=== PATIENT | male | born 1980 | race Caucasian/White ===

== ENCOUNTER → 2016-03-20 | Outpatient (CLI) | payer BC ==
[~2016-03-20] MED LIST: GABA-113 PO; MULT-220 PO
--- NOTE | 2016-03-23 14:13 | PULMONARY FUNCTION TEST ---
CLINICAL DATA: A 35-year-old male with paresthesias in his upper and lower extremities and face and loud snoring was referred by Dr. Springer and Dr. Moralez and myself for a sleep study. On the evening of 03/20/2016, a home sleep apnea test was performed using a [employer] type 3 monitor. RECORDING RESULTS: Total recording time was 10 hours. The patient's estimated sleep time and the patient monitoring time was 7.9. RESPIRATORY DATA: Mild sleep apnea was documented. The HARSHAL was 10.6. There were 29 obstructive, 6 mixed and 10 central apneic episodes. There were 39 hypopneic episodes. The longest respiratory event was 35 seconds. OXIMETRY DATA: Nocturnal hypoxemia was seen. Oxygen susan was 80%. Mean saturation was 92%. Time below 89% was 25 minutes. HEART RATE DATA: Heart rates ranged from 47-58 beats per minute. SNORING DATA: Snoring was recorded throughout the night. IMPRESSION: Mild obstructive sleep apnea with nocturnal hypoxemia. RECOMMENDATIONS: The patient would benefit from a repeat sleep study with CPAP, use of an oral appliance, or weight loss. Clinical correlation is needed. LYSSA
--- NOTE | 2016-03-24 11:24 | POLYSOMNOGRAPH REPORT ---
DATE: 03/20/16 CLINICAL DATA: A 35-year-old male with paresthesias in his upper and lower extremities/face and loud snoring was referred by Dr. Springer and Dr. Moralez and myself for a sleep study. On the evening of 03/20/2016, a home sleep apnea test was performed using a [employer] type 3 monitor. RECORDING RESULTS: Total recording time was 10 hours. The patient's estimated sleep time and the patient monitoring time was 7.9. RESPIRATORY DATA: Mild sleep apnea was documented. The HARSHAL was 10.6. There were 29 obstructive, 6 mixed and 10 central apneic episodes. There were 39 hypopneic episodes. The longest respiratory event was 35 seconds. OXIMETRY DATA: Nocturnal hypoxemia was seen. Oxygen susan was 80%. Mean saturation was 92%. Time below 89% was 25 minutes. HEART RATE DATA: Heart rates ranged from 47-58 beats per minute. SNORING DATA: Snoring was recorded throughout the night. IMPRESSION: Mild obstructive sleep apnea with nocturnal hypoxemia. RECOMMENDATIONS: The patient may benefit from a repeat sleep study with CPAP, use of an oral appliance, or weight loss. Clinical correlation is needed.
== END | disposition home or self-care (01) ==
LOC: C.NEUR 08:02
PROVIDERS: ATTEND Internal Medicine Pulmonary Disease
DX: J30.9 Allergic rhinitis, unspecified (principal); J34.2 Deviated nasal septum; R20.0 Anesthesia of skin; R20.2 Paresthesia of skin; R06.83 Snoring

== ENCOUNTER → 2016-04-04 | Outpatient (CLI) | payer BC ==
[~2016-04-04] VITALS: Ht 185.4 cm; Wt 126.1 kg
[2016-04-04 13:22] VITALS: BP 125/84; PULSE 75; Ht 185.4 cm; Wt 126.1 kg
== END | disposition home or self-care (01) ==
LOC: C.NEUR 12:07
PROVIDERS: ATTEND Internal Medicine Pulmonary Disease
DX: G47.33 Obstructive sleep apnea (adult) (pediatric) (principal); R06.83 Snoring; R20.2 Paresthesia of skin; J30.9 Allergic rhinitis, unspecified

== ENCOUNTER → 2016-05-16 | Outpatient (CLI) | payer BC ==
--- NOTE | 2016-05-17 04:42 | PAP/PSG TECHNICIAN REPORT ---
[facility] Algebra Tutor Polysomnogram Report Study name: None Report date: 05/17/2016 Study date: 05/16/2016 Referring Physician: Joseph Lopez M.D. Name: CALEB CHIN Interpreting Physician: Joseph Lopez M.D. Date of : 1980 Algebra Tutor: HENRY Chaudhary. Sex: Male Age: 35 StudyType: PSG PAP Weight: 278 lbs Height: 35 years, Height 6' 1" Neck Circum: 16.5inches BMI: 36.67 Medications: Claritin 10mg, Vitamin Patient History Study started on room air with 4cwp in room #8. He had a positive HST that had an HARSHAL of 10.6. He is here tonight for a new titration study. Neck circ=16.5inches. Parameters Monitored NPSG: E1-M2, E2-M1, Fp1-M2, Fp2-M1, F3-M2, F4-M2, F4-M1, C3-M2, C4-M2, C4-M1, O1-M2, O2-M2, O2-M1, T3-M2, T4-M1, P3-M2, P4-M1, CHIN1, CHIN2, HR, EKG, Legs, PFLOW, SNOR, FLOW, CFLOW, Tidal Volume, THOR, ABDO, SpO2, PLTH, CPRESS, ETCO2 Wave, ETCO2, pH Sleep Architecture Sleep Stages Time at Lights Off 9:55:38 PM STAGES Time (min.) TST (%) Time at Lights On 4:16:38 AM Wake 224.5 -- Total Recording Time (TRT) 381.00 min. N1 11.0 7 Total Sleep Period (TSP) 245.5 min. N2 62.0 40 Total Sleep Time (TST) 156.0min. N3 68.5 44 Awake Time 225.0 min. REM 14.5 9 Wake after Sleep Onset 207.0 min. Sleep Efficiency (SE) 41 % Sleep Onset Latency (JEAN) 18.0 min. Number of Stage 1 Shifts None Awakenings 16 Stage Changes 51 Number of REM periods 1 REM 14.5 9 REM Latency 108.0 min. NREM 141.5 91 Body Position Analysis Supine Right Left Side Prone Vertical Total Sleep Time (min.) 232.5 12.0 69.8 81.76 0.0 0.1 Total Sleep Time (%) 48% 8% 45% 52 0% N/A% Total Sleep Time REM (min.) 14.5 0.0 0.0 None 0.0 0.0 Total Sleep Time NREM (min.) 59.7 12.0 69.8 None 0.0 0.0 Intermittent Wake (min.) 158.3 31.4 34.8 None 0.0 0.1 Total Sleep Period (%) 53% None None None None None Arousals Myoclonus (PLM) * Events Count Index Events Count Index Spontaneous 2 1 Events Awake (PLMW) 225 60.1 Respiratory 5 2.7 Events Asleep w/ Arousal (PLMA) 8 3.1 PLM 6 3 Events Asleep w/o Arousal (PLMS) 51 19.6 Snoring 2 1 Total Asleep 59 22.7 Total 14 5 Total 284 45 Respiratory Analysis * CA OA MA CH H RERA Total Count 1 1 0 0 9 1 11 Index 0.4 0.4 0.0 0 3.5 0 4.6 Mean Duration 14.4 18.8 0.0 0.00 27.2 12.7 24.3 Longest Duration 14.4 18.8 0.0 0.00 0.0 12.7 44.0 Respiratory Event Summary Total Supine ~Supine Right Left Prone REM NREM Apneas Count 2 0 2 0 2 N/A 0 2 Index 0.8 0 1 0.0 1.7 N/A 0 1 Hypopneas (4% Desat) Count 9 7 2 0 2 N/A 0 9 Index 3.5 5.7 1 0.0 1.7 N/A 0.0 3.8 Apneas & All Hypopneas Count 11 7 4 0 4 N/A 0 11 Index 4.2 6 3 0 3 N/A 0.0 4.7 Respiratory Events (Building Inspection Engineer+All Hyp+RERA) Count 11 8 4 0 4 N/A 0 11 Index 4.6 6 3 0.0 3.4 N/A 0.0 5.1 Respiratory Related Arousal Count 5 8 2 0 2 N/A 0 7 Index 2.7 4 1 0 2 N/A 0 3 Snoring Analysis Supine Right Left Prone REM NREM Total Snore duration 2.1 min Snores count 102 1 5 N/A 50 58 108 Snore mean duration 1.2 Sec Snores index 82 5 4 N/A 206.9 24.6 41.5 TST with snoring (%) 1.4% Desaturation Event Summary: Minimum %SpO2 Event Count Mean/Min/Max Duration(sec.) Desaturation Index % Time In Bed > 90 26 34.7 / 5.8 / 60.0 13.4 37.6 86 - 90 12 21.1 / 5.8 / 52.8 3.7 62.1 81 - 85 1 4.3 / 4.3 / 4.3 77.4 0.2 76 - 80 0 N/A 0.0 0.0 71 - 75 0 N/A 0.0 0.0 66 - 70 0 N/A 0.0 0.0 61 - 65 0 N/A 0.0 0.0 56 - 60 0 N/A 0.0 0.0 51 - 55 0 N/A 0.0 0.0 < 50 0 N/A 0.0 0.0 Total REM NREM Awake <50% 0.0 min. 0.0 min. 0.0 min. 0.0 min. 51 - 60% 0.0 min. 0.0 min. 0.0 min. 0.0 min. 61 - 70% 0.0 min. 0.0 min. 0.0 min. 0.0 min. 71 - 80% 0.0 min. 0.0 min. 0.0 min. 0.0 min. 81 - 90% 193.5 min. 9.3 min. 84.8 min. 99.4 min. 91 - 100% 116.7 min. 5.2 min. 54.6 min. 56.9 min. Average 90 90 90 90 Minimum SpO2 82 88 87 82 Desaturation Event Index 5.0 0.0 4.2 5.9 # Desat. Events below 89% 22 N/A 8 14 Time(%) with Saturation below 89% 15.4 0.1 7.6 7.7 Time(min.) with Saturation below 89% 47.9 0.2 23.7 24.0 Time (mins) REM (mins) NREM (mins) % of TST SpO2 Below 90% 10 N/A N10 36.7 SpO2 Below 88% 4 0 0 2 Heart Rate Analysis Min (bpm) Max (bpm) Average (bpm) Awake 47 255 73 NREM 55 99 62 REM 52 76 65 Overall 52 99 62 Supplemental O2 Values Minimum O2 level: None Value Start Time End Time Algebra Tutor Comments Mr. Chin slept in the right, left and supine positions. No cardiac arrhythmia noted. PLM's were noted. No bruxism noted. CPAP was initiated at +4 CMH2O and up-titrated to an optimal level of +6 CMH2O, which nearly eliminated all respiratory events and snoring. A medium Quattro Air full face mask by [employer] was used during titration. He awoke to use the restroom 1 time during the night. He woke up towards classification counselor and needed to take the mask off for a break and never did end up putting it back on. He did however say that he would like to try cpap therapy at home. He could not get comfortable here with all the wires on. He had numbness in his extremities and needed to get up and stretch. He stated that he slept worse than when at home. The final report will be interpreted and signed by a sleep physician. The completed physician report will then be placed in the patient medical record. Therapy Event: Therapy (cm H20) 4 5 6 Total Time at Pressure (min.) 29.1 120.0 231.4 TST at Pressure (min.) 4.5 117.1 34.4 # Periods 1 1 1 Sleep Onset (min.) 18.0 1.4 0.0 REM Onset (min.) N/A 96.9 N/A Sleep Efficiency % 15 97 14 Wakefulness (%) 84.5 2.4 85.1 Wakefulness (min.) 24.6 2.9 197.0 NREM 1 (%) 13.8 1.8 2.1 NREM 1 (min.) 4.0 2.1 4.9 NREM 2 (%) 1.7 26.7 12.7 NREM 2 (min.) 0.5 32.0 29.5 NREM 3 (%) 0.0 57.1 0.0 NREM 3 (min.) 0.0 68.5 0.0 REM (%) 0.0 12.1 0.0 REM (min.) 0.0 14.5 0.0 # Arousals 3 6 5 Arousal Index 40.0 3.1 8.7 # Snore 2 105 1 Snore Index 26.7 53.8 1.7 AHI 40.0 4.1 0.0 AHI Supine 60.0 3.4 0.0 AHI Non-Supine 0.0 5.1 0.0 NREM AHI 40.0 4.7 0.0 REM AHI N/A 0.0 N/A RDI 53.3 4.1 0.0 # Obstructive 0 1 0 # Central Ap 0 1 0 # Mixed 0 0 0 # Hypopneas 3 6 0 RERAS 1 0 0 Total Respiratory Events 4 8 0 Time Below SpO2 89.00% (min.) 0.2 12.8 10.8 Mean NREM SpO2 (%) 91 90 89 Mean REM SpO2 (%) N/A 90 N/A Mean Sleep SpO2 (%) 91 90 89 Min NREM SpO2 (%) 87 87 87 Min REM SpO2 (%) N/A 88 N/A Position Supine (min.) 3.0 70.3 0.9 Position Non-supine (min.) 1.5 46.8 33.5 LM Index Sleep 40.0 9.2 66.3 LM Index NREM 40.0 10.5 66.3 LM Index REM N/A 0.0 N/A Mean Heart Rate (bpm) 68 63 59 Min Heart Rate (bpm) 63 52 55
--- NOTE | 2016-05-18 17:48 | POLYSOMNOGRAPH REPORT ---
CLINICAL DATA: A 35-year-old male with BMI of 36.7 referred by myself, Francie Anderson and Dr. Chin Peters for treatment of sleep apnea. He had a home sleep study done which showed an HARSHAL of 10.6 indicating mild sleep apnea. SLEEP ARCHITECTURE: Total sleep period was 245.5 minutes. Total sleep time was 156 minutes divided between 141.5 minutes of non-REM sleep and 14.5 minutes of REM sleep. Sleep onset latency was 18 minutes. REM latency was 108 minutes. Sleep efficiency was severely reduced at 41%. Wake after sleep onset was markedly elevated at 207 minutes. Sleep consisted of stage N1 7%, N2 40%, N3 44%, and REM 9%. AROUSAL DATA: 14 arousals were recorded for an index of 5 per hour. PERIODIC LIMB MOVEMENTS DATA: 59 limb movements during sleep were noted for an index of 22 with 7 per hour with arousal index of 3.1 per hour. RESPIRATORY DATA: The AHI was 4.2. There was 1 obstructive and 1 central apneic episode. The longest apneic episode was 18.8 seconds. There were 9 hypopneic episodes. The mean duration of hypopnea was 27.2 seconds. OXIMETRY DATA: Very transient nocturnal hypoxemia was seen. Oxygen susan was 87% during non-REM sleep. The mean saturation was 90%. Time below 88% was 4 minutes. EKG: Heart rates ranged from 55-99 beats per minute. No arrhythmias were noted. BARREL FILLER'S COMMENTS: The patient slept in the right, left, and supine positions. CPAP was started using a medium Quattro full facemask by [employer]. The patient was titrated up to 6 cm of water pressure. At that pressure setting, he slept for 34 minutes with an AHI of 0. IMPRESSION: Mild sleep apnea/hypopnea corrected with CPAP 6 cm of water pressure, medium Quattro full facemask by [employer]. RECOMMENDATIONS: The patient could be started on the above noted treatment regimen and seen back in followup within 90 days to document efficacy and compliance. If he has difficulty tolerating the CPAP, Lunesta 3 mg or Ambien 10 mg daily for 2 weeks at the initiation of CPAP therapy could be considered. Clinical correlation is needed. [facility]
== END | disposition home or self-care (01) ==
LOC: C.NEUR 21:00
PROVIDERS: ATTEND Physician Assistant Medical
DX: G47.33 Obstructive sleep apnea (adult) (pediatric) (principal)

== ENCOUNTER → 2016-05-30 | Outpatient (CLI) | payer BC ==
[~2016-05-30] VITALS: Ht 185.4 cm; Wt 126.5 kg
[2016-05-30 12:23] VITALS: BP 116/81; PULSE 82; Ht 185.4 cm; Wt 126.5 kg
== END | disposition home or self-care (01) ==
LOC: C.NEUR 11:52
PROVIDERS: ATTEND Physician Assistant Medical
DX: G47.33 Obstructive sleep apnea (adult) (pediatric) (principal)

== ENCOUNTER → 2016-08-22 | Outpatient (CLI) | payer BC ==
[~2016-08-22] VITALS: Ht 185.4 cm; Wt 122.6 kg
[2016-08-22 12:43] VITALS: BP 132/92; PULSE 76; Ht 185.4 cm; Wt 122.6 kg
== END | disposition home or self-care (01) ==
LOC: C.NEUR 12:20
PROVIDERS: ATTEND Physician Assistant Medical
DX: G47.33 Obstructive sleep apnea (adult) (pediatric) (principal); G25.81 Restless legs syndrome

== ENCOUNTER → 2017-02-20 | Outpatient (CLI) | payer BC ==
--- NOTE | 2017-02-20 14:46 | DIAGNOSTIC IMAGING REPORT ---
ULTRASOUND TESTES AND SCROTUM CLINICAL HISTORY: Scrotal tenderness to palpation. COMPARISON STUDY: No priors. TECHNIQUE: Real-time, grayscale, and color Doppler sonography of the testes and scrotum is performed. Images are reviewed in the transverse and longitudinal planes. FINDINGS: The testes are normal in size and homogeneous in echotexture. The right testis measures 5.1 x 2.4 x 3.3 cm and the left testis measures 4.7 x 1.8 x 2.4 cm. No intratesticular mass is seen. Testicular blood flow is normal and symmetric. Normal Doppler waveforms are identified in both testes. The epididymal heads are normal in appearance. The right epididymal head measures 1.0 cm in length and the left epididymal head measures 1.1 cm in length. There is a left-sided varicocele which measures up to 4 mm. The right-sided varicocele is seen and there is no hydrocele. IMPRESSION: 1. Unremarkable sonographic appearance of the testes. 2. There is a left-sided varicocele. Electronically signed by: Arnol Rodriguez M.D. 02/20/2017 2:45 PM Dictated Date/Time: 02/20/2017 2:44 PM
== END | disposition home or self-care (01) ==
LOC: C.ULTR 14:18
PROVIDERS: ATTEND Family Medicine
DX: N50.82 Scrotal pain (principal); I86.1 Scrotal varices

== ENCOUNTER 2017-03-22 17:36 | Emergency (ER) | payer BC, OTHER ==
[~2017-03-22] VITALS: Ht 185.4 cm; Wt 125.2 kg
[2017-03-22 17:52] VITALS: TEMP 37.3; Ht 185.4 cm; Wt 125.2 kg
[2017-03-22] MEDS ORDERED: KETOROLAC TROMETHAMINE 30 MG/ML VIAL IV STA (19:00)
[2017-03-22] MEDS ORDERED: ONDANSETRON INJ 2 MG/ML 2 ML VIAL IV STA (19:00)
[2017-03-22 19:35] LABS: BASO % 0.1 %; BASO ABS # 0.02 K/uL (0-0.2); EOS % 0.4 %; EOS ABS # 0.05 K/uL (0-0.5); HEMATOCRIT 45.5 % (42-52); HEMOGLOBIN 15.9 g/dL (14.0-18.0); IG# 0.06 K/uL (0.00-0.02); LYMPH % 14.3 %; LYMPH ABS # 1.95 K/uL (1.2-3.4); MEAN CELL VOLUME 83.3 fL (80-100); MEAN CORPUSCULAR HEMOGLOBIN 29.1 pg (25-34); MEAN CORPUSCULAR HGB CONC 34.9 g/dl (32-36); MEAN PLATELET VOLUME 9.1 fL (7.4-10.4); MONO ABS # 1.09 K/uL (0.11-0.59); NEUT % 76.8 %; NEUT ABS # 10.46 K/uL (1.4-6.5); PLATELET COUNT 270 K/uL (130-400); RED CELL DISTRIBUTION WIDTH CV 13.2 % (11.5-14.5); RED CELL DISTRIBUTION WIDTH SD 39.2 fL (36.4-46.3); WHITE BLOOD COUNT 13.63 K/uL (4.8-10.8)
--- NOTE | 2017-03-22 19:39 | DIAGNOSTIC IMAGING REPORT ---
ABD/PELVIS WITHOUT FOR STONE HISTORY: 36 years-old Male Pt c/o diffuse abd pain acute generalized abdominal pain COMPARISON: Testicular ultrasound 02/20/2017, CTA of the chest 02/16/2011 TECHNIQUE: Multiple axial CT images of the abdomen and pelvis were obtained without the use of IV contrast. A dose lowering technique was used consistent with the principals of EZRA. FINDINGS: Minimal subsegmental atelectasis of the inferior segment lingula. Lung bases are otherwise clear. There is no pneumatosis or pneumoperitoneum identified. Imaged inferior cardiac chambers are unremarkable. Evaluation of the solid abdominal organs is limited without the use of IV contrast. Hepatic steatosis. Splenomegaly with spleen measuring 14.6 cm. Prior cholecystectomy. Pancreas and adrenal glands are within normal limits. 3 mm nonobstructing calculus is seen within the inferior pole left kidney. No right-sided nephrolithiasis. There is minimal inflammatory stranding surrounding the bilateral ureters without evidence of obstructive uropathy or ureteral calculi. Mild wall thickening of the bladder which is partially collapsed. Prostate appears unremarkable. Phleboliths of the pelvis. Aorta is normal in course and caliber. No bulky adenopathy. No bowel obstruction or focal bowel wall thickening. Nondistention of the sigmoid colon. Normal appendix. Soft tissues are unremarkable. Bones appear intact. Small Schmorl's node involves the superior endplate of L3. IMPRESSION: 1. 3 mm nonobstructing calculus of the inferior pole left kidney. No ureteral calculi or obstructive uropathy. 2. Mild stranding surrounds the bilateral ureters and urinary bladder. Correlate with urinalysis to exclude cystitis with ureteritis. 3. Hepatic steatosis. 4. Splenomegaly. 5. Normal appendix. The above report was generated using voice recognition software. It may contain grammatical, syntax or spelling errors. Electronically signed by: Duke Pompa M.D. 03/22/2017 7:37 PM Dictated Date/Time: 03/22/2017 7:31 PM
[2017-03-22] MEDS ORDERED: DIPH25CA65 PO (19:41)
[2017-03-22] MEDS ORDERED: ACET-1256 PO (19:41)
[2017-03-22 20:01] LABS: ALBUMIN 4.2 gm/dl (3.4-5.0); BLOOD UREA NITROGEN 12 mg/dl (7-18); CALCIUM 9.7 mg/dl (8.5-10.1); CARBON DIOXIDE 27 mmol/L (21-32); CREATININE 0.91 mg/dl (0.60-1.40); GLUCOSE 100 mg/dl (70-99); LIPASE 130 U/L (73-393); POTASSIUM 3.8 mmol/L (3.5-5.1); SODIUM 136 mmol/L (136-145)
[2017-03-22 20:04] LABS: ALKALINE PHOSPHATASE 73 U/L (45-117); ALT/SGPT 66 U/L (12-78); AST/SGOT 18 U/L (15-37); TOTAL PROTEIN 8.1 gm/dl (6.4-8.2)
[2017-03-22] MEDS ORDERED: CEFTRIAXONE SOD INJ 1 GM ADDVIAL IV STA (20:04)
[2017-03-22] MEDS ORDERED: VANCOMYCIN 1GM/270ML NSS IV STA (20:04)
[2017-03-22 20:13] LABS: INFLUENZA B ANTIGEN Neg for Influ B (NEG)
--- NOTE | 2017-03-22 21:04 | EMERGENCY ROOM VISIT NOTE ---
History Report prepared by Kenyatta: Bernie Valle Under the Supervision of: Dr. Ronnell Alex M.D. First contact with patient: 18:50 Chief Complaint: HEMATURIA Stated Complaint: GROIN PAIN, BACK PAIN, FEVER, HEMATURIA History of Present Illness The patient is a 36 year old male who presents to the Emergency Room with complaints of persistent testicle pain starting 1 month ago. The patient was sent to the ED by his PCP. He has been having rectal pain for the past 6 months. The pain has since moved under his testicles and into his left testicle. He has had a workup for prostatitis and a colonoscopy. He is having left testicle pain with erections. 2 nights ago, he was masturbating. When he ejaculated, nothing came out and he had an intense pain. He then vomited. This morning, he woke up with pain across his lower back and body aches. He is feeling fatigued and has a fever. He denies any abdominal pain. Source of History: patient Onset: 1 month ago Position: other (testicle) Quality: other (pain) Timing: other (persistent) Modifying Factors (Worsening): other (erection, ejaculation) Associated Symptoms: + fevers, + vomiting, + back pain, No abdominal pain Review of Systems See HPI for pertinent positives & negatives. A total of 10 systems reviewed and were otherwise negative. Past Medical & Surgical Surgical Problems: (1) History of cholecystectomy Family History No pertinent family history Social History Smoking Status: Never Smoker Alcohol Use: occasionally Marital Status: Housing Status: lives with family Occupation Status: employed Current/Historical Medications Scheduled Diphenhydramine Hcl (Benadryl Allergy), 1 CAP PO PRN Scheduled PRN Acetaminophen (Tylenol), 1,000 MG PO Q6 PRN for Headache or Pain Allergies Coded Allergies: No Known Allergies (Unverified , 09/22/15) Physical Exam Vital Signs Date Time Temp Pulse Resp B/P (MAP) Pulse Ox O2 Delivery O2 Flow Rate FiO2 03/22/17 21:48 76 16 106/72 97 Room Air 03/22/17 21:00 88 16 116/77 97 03/22/17 19:39 88 16 116/77 97 Room Air 03/22/17 17:52 37.3 115 20 125/84 96 Physical Exam GENERAL: Patient is a healthy-appearing well-nourished male HEAD: Normocephalic atraumatic EYES: Ocular movements intact pupils equal and react to light OROPHARYNX mucous membranes are moist no exudates present no erythema or edema present NECK: Supple no nuchal rigidity CHEST: Good equal expansion LUNGS: Clear and equal to auscultation CARDIAC: Normal S1 and S2 ABDOMEN: Soft nontender no guarding BACK: No CVA tenderness EXTREMITIES: No pain upon palpation normal muscle strength in all groups no clubbing cyanosis or edema NEURO: Patient is following commands and answering questions appropriately. Alert and oriented x3 Cranial Nerves 2-12 grossly intact Medical Decision & Procedures ER Provider Diagnostic Interpretation: Radiology results as stated below per my review and radiologist interpretation: ABD/PELVIS WITHOUT FOR STONE HISTORY: 36 years-old Male Pt c/o diffuse abd pain acute generalized abdominal pain COMPARISON: Testicular ultrasound 02/20/2017, CTA of the chest 02/16/2011 TECHNIQUE: Multiple axial CT images of the abdomen and pelvis were obtained without the use of IV contrast. A dose lowering technique was used consistent with the principals of EZRA. FINDINGS: Minimal subsegmental atelectasis of the inferior segment lingula. Lung bases are otherwise clear. There is no pneumatosis or pneumoperitoneum identified. Imaged inferior cardiac chambers are unremarkable. Evaluation of the solid abdominal organs is limited without the use of IV contrast. Hepatic steatosis. Splenomegaly with spleen measuring 14.6 cm. Prior cholecystectomy. Pancreas and adrenal glands are within normal limits. 3 mm nonobstructing calculus is seen within the inferior pole left kidney. No right-sided nephrolithiasis. There is minimal inflammatory stranding surrounding the bilateral ureters without evidence of obstructive uropathy or ureteral calculi. Mild wall thickening of the bladder which is partially collapsed. Prostate appears unremarkable. Phleboliths of the pelvis. Aorta is normal in course and caliber. No bulky adenopathy. No bowel obstruction or focal bowel wall thickening. Nondistention of the sigmoid colon. Normal appendix. Soft tissues are unremarkable. Bones appear intact. Small Schmorl's node involves the superior endplate of L3. IMPRESSION: 1. 3 mm nonobstructing calculus of the inferior pole left kidney. No ureteral calculi or obstructive uropathy. 2. Mild stranding surrounds the bilateral ureters and urinary bladder. Correlate with urinalysis to exclude cystitis with ureteritis. 3. Hepatic steatosis. 4. Splenomegaly. 5. Normal appendix. The above report was generated using voice recognition software. It may contain grammatical, syntax or spelling errors. Electronically signed by: Duke Pompa M.D. 03/22/2017 7:37 PM Dictated Date/Time: 03/22/2017 7:31 PM Laboratory Results 03/22/17 19:05 Red Blood Count 5.46, Mean Corpuscular Volume 83.3, Mean Corpuscular Hemoglobin 29.1, Mean Corpuscular Hemoglobin Concent 34.9, Mean Platelet Volume 9.1, Neutrophils (%) (Auto) 76.8, Lymphocytes (%) (Auto) 14.3, Monocytes (%) (Auto) 8.0, Eosinophils (%) (Auto) 0.4, Basophils (%) (Auto) 0.1, Neutrophils # (Auto) 10.46, Lymphocytes # (Auto) 1.95, Monocytes # (Auto) 1.09, Eosinophils # (Auto) 0.05, Basophils # (Auto) 0.02 03/22/17 19:05 Test 03/22/17 19:05 White Blood Count 13.63 K/uL (4.8-10.8) Red Blood Count 5.46 M/uL (4.7-6.1) Hemoglobin 15.9 g/dL (14.0-18.0) Hematocrit 45.5 % (42-52) Mean Corpuscular Volume 83.3 fL (80-100) Mean Corpuscular Hemoglobin 29.1 pg (25-34) Mean Corpuscular Hemoglobin Concent 34.9 g/dl (32-36) Platelet Count 270 K/uL (130-400) Mean Platelet Volume 9.1 fL (7.4-10.4) Neutrophils (%) (Auto) 76.8 % Lymphocytes (%) (Auto) 14.3 % Monocytes (%) (Auto) 8.0 % Eosinophils (%) (Auto) 0.4 % Basophils (%) (Auto) 0.1 % Neutrophils # (Auto) 10.46 K/uL (1.4-6.5) Lymphocytes # (Auto) 1.95 K/uL (1.2-3.4) Monocytes # (Auto) 1.09 K/uL (0.11-0.59) Eosinophils # (Auto) 0.05 K/uL (0-0.5) Basophils # (Auto) 0.02 K/uL (0-0.2) RDW Standard Deviation 39.2 fL (36.4-46.3) RDW Coefficient of Variation 13.2 % (11.5-14.5) Immature Granulocyte % (Auto) 0.4 % Immature Granulocyte # (Auto) 0.06 K/uL (0.00-0.02) Urine Color YELLOW Urine Appearance CLOUDY (CLEAR) Urine pH 7.0 (4.5-7.5) Urine Specific [place] 1.013 (1.000-1.030) Urine Protein 2+ (NEG) Urine Glucose (UA) NEG (NEG) Urine Ketones NEG (NEG) Urine Occult Blood 3+ (NEG) Urine Nitrite NEG (NEG) Urine Bilirubin NEG (NEG) Urine Urobilinogen NEG (NEG) Urine Leukocyte Esterase LARGE (NEG) Urine WBC (Auto) >30 /hpf (0-5) Urine RBC (Auto) >30 /hpf (0-4) Urine Hyaline Casts (Auto) 5-10 /lpf (0-5) Urine Epithelial Cells (Auto) 5-10 /lpf (0-5) Urine Bacteria (Auto) NEG (NEG) Anion Gap 7.0 mmol/L (3-11) Est Creatinine Clear Calc Drug Dose 155.6 ml/min Estimated GFR () 125.2 Estimated GFR (Non- 108.0 BUN/Creatinine Ratio 13.1 (10-20) Calcium Level 9.7 mg/dl (8.5-10.1) Total Bilirubin 0.6 mg/dl (0.2-1) Direct Bilirubin < 0.1 mg/dl (0-0.2) Aspartate Amino Transf (AST/SGOT) 18 U/L (15-37) Alanine Aminotransferase (ALT/SGPT) 66 U/L (12-78) Alkaline Phosphatase 73 U/L (45-117) Total Creatine Kinase 74 U/L (39-308) Total Protein 8.1 gm/dl (6.4-8.2) Albumin 4.2 gm/dl (3.4-5.0) Lipase 130 U/L (73-393) Lyme Disease IgG Antibody NEG (NEG) Lyme Disease IgM Antibody NEG (NEG) Influenza Type A Antigen Neg for Influ A (NEG) Influenza Type B Antigen Neg for Influ B (NEG) Labs reviewed by ED physician. Medications Administered Medications (Trade) Dose Ordered Sig/Sang Route Start Time Stop Time Status Last Admin Dose Admin Ketorolac Tromethamine (Toradol Inj) 30 mg NOW STAT IV 03/22/17 19:00 03/22/17 19:03 DC 03/22/17 19:35 30 MG Ondansetron HCl (Zofran Inj) 4 mg NOW STAT IV 03/22/17 19:00 03/22/17 19:03 DC 03/22/17 19:35 4 MG Ceftriaxone Sodium (Rocephin Inj) 1 gm NOW STAT IV 03/22/17 20:04 03/22/17 20:06 DC 03/22/17 20:11 1 GM Vancomycin HCl (Vancomycin 1gm/ 270ml Nss) 1 gm NOW STAT IV 03/22/17 20:04 03/22/17 20:06 DC 03/22/17 20:45 1 GM ED Course 1851: Past medical records reviewed. The patient was evaluated in room C6. A complete history and physical examination was performed. 1899: Zofran Inj 4 mg IV, Toradol Inj 30 mg IV. 2003: Vancomycin HCl 1 gm IV, Rocephin Inj 1 gm IV. 2056: Upon reexamination the patient is resting comfortably. I discussed results and treatment plan with the patient. He verbalizes agreement and understanding. The patient is ready for discharge. Medical Decision Differential diagnosis: Etiologies such as viral syndrome, otitis, pharyngitis, pneumonia, influenza, meningitis, urinary tract infection, sepsis, bacteremia, as well as others were entertained. This is a 36-year-old male who presents emergency department with groin pain. Patient has been following up with his urologist. The patient developed abdominal pain today. Serial abdominal examinations were performed on the patient in the emergency department no time the patient's a surgical abdomen. In reviewing this patient's chart he has never had a CAT scan of the abdomen and pelvis shared medical decision making with the patient sent for. He was found to have slight elevation in his white blood count cell count. His CAT scan is concerning for a urinary tract infection along with uritritis. Based on these findings I did recommend the patient be admitted however he wants to try it at home. His primary care physician has already prescribed Cipro and I encouraged patient to continue taking this. I also stressed the need for follow -up with urology patient does have an appointment on Sunday. Return to the emergency department if his fevers or out of control. Patient was in agreement with the treatment plan. Medication Reconcilliation Current Medication List: was personally reviewed by me Blood Pressure Screening Patient's blood pressure: Normal blood pressure Blood pressure disposition: Did not require urgent referral Impression Primary Impression: UTI (urinary tract infection) Scribe Attestation The scribe's documentation has been prepared under my direction and personally reviewed by me in its entirety. I confirm that the note above accurately reflects all work, treatment, procedures, and medical decision making performed by me. Departure Information Dispostion Home / Self-Care Referrals Chin Peters MD (PCP) Chin Strong M.D. Forms HOME CARE DOCUMENTATION FORM, IMPORTANT VISIT INFORMATION, WORK / SCHOOL INSTRUCTIONS Patient Instructions ED UTI Cystitis Male, My [facility] Additional Instructions NEED to return for out of control fevers or severe abd pain Continue taking Cipro Need follow up with Dr Strong Take 1000 mg Tylenol every 6 hours for fever and pain 600 mg Ibuprofen every 6 hours Increase fluids next 48 hours You have been examined and treated today on an emergency basis only. This is not a substitute for, or an effort to provide, complete comprehensive medical care. It is impossible to recognize and treat all injuries or illnesses in a single emergency department visit. It is therefore important that you follow up closely with Dr Peters. Call as soon as possible for an appointment. Thank you for your time and consideration. I look forward to speaking with you again soon. Please don't hesitate to call us if you have any questions. Problem Qualifiers Primary Impression: UTI (urinary tract infection) Urinary tract infection type: acute cystitis Hematuria presence: without hematuria Qualified Codes: N30.00 - Acute cystitis without hematuria
[2017-03-22 21:48] VITALS: BP 106/72; PULSE 76; O2SAT 97
== END 2017-03-22 21:00 | disposition home or self-care (01) ==
LOC: C.EDB 17:38 → C.EDC 21:00
DX: N30.00 Acute cystitis without hematuria (principal)